=== PATIENT | female | born 1975 | race Hispanic/Latino ===

== ENCOUNTER → 2024-12-12 | Outpatient (CLI) | payer OTHER ==
--- NOTE | 2024-12-12 15:40 | HMCIMG ---
RIGHT KNEE RADIOGRAPHS - 2 VIEWS INDICATION: Pain COMPARISON: None FINDINGS: AP, lateral views. No acute fracture or dislocation identified. Moderate tricompartmental right knee osteoarthropathy includes moderate to severe medial compartment joint space narrowing with secondary mild widening of the lateral compartment joint space, remodeling of the articular surfaces, and marginal osteophyte formation without any significant medial tibial plateau downsloping at this juncture. No significant joint effusion is present. Overlying soft tissues appear normal. IMPRESSION: Moderate tricompartmental right knee osteoarthritic.
--- NOTE | 2024-12-12 15:40 | HMCIMG ---
LEFT KNEE RADIOGRAPHS - 2 VIEWS INDICATION: Pain COMPARISON: None FINDINGS: AP, lateral views. No fracture or dislocation identified. Moderate tricompartmental left knee osteoarthropathy includes moderate to severe medial compartment joint space narrowing with secondary mild widening of the lateral compartment joint space, remodeling of the articular surfaces, and marginal osteophyte formation without any significant medial tibial plateau downsloping at this juncture. No significant joint effusion is present. Overlying soft tissues appear normal. No radiopaque foreign body noted. IMPRESSION: Moderate tricompartmental left knee osteoarthritis.
== END | disposition home or self-care (01) ==
LOC: RAH 14:06
PROVIDERS: ATTEND Internal Medicine
DX: M17.12 Unilateral primary osteoarthritis, left knee (principal); M17.11 Unilateral primary osteoarthritis, right knee; M25.561 Pain in right knee; M25.562 Pain in left knee
CPT/HCPCS: 73560